=== PATIENT | female | born 1995 | race American Indian/Alaskan Native ===

== ENCOUNTER 2020-05-23 12:35 | Outpatient (CLI) | payer MEDICAID ==
[2020-05-23 13:45] VITALS: BP 133/61
[2020-05-23] MEDS ORDERED: HYDROcodone/ACETAMINOPHEN 10-325MG TAB PO PRN (14:03)
--- NOTE | 2020-05-23 17:14 | Ultrasound Report ---
US OB limited INDICATION / CLINICAL INFORMATION: Rule out placenta abruption. COMPARISON: None FINDINGS: Single, viable intrauterine . Current breech presentation. heart rate 151. Placenta is posterior and fundal, with no sonographic evidence of abruption IMPRESSION: 1. Viable intrauterine . 2. No evidence of placental abruption. Signer Name: Holger Kitchen MD Signed: 05/23/2020 5:09 PM Workstation Name: [id number]
== END 2020-05-23 17:30 | disposition home or self-care (01) ==
LOC: TRG 12:35 → APU 12:36 → TRG 17:30
PROVIDERS: ATTEND Obstetrics & Gynecology
DX: O46.92 Antepartum hemorrhage, unspecified, second trimester (principal); O32.1XX0 Maternal care for breech presentation, not applicable or unspecified; Z3A.25 25 weeks gestation of pregnancy
CPT/HCPCS: 59025; 76815

== ENCOUNTER 2020-07-25 17:50 | Outpatient (CLI) | payer MEDICAID ==
[2020-07-25 19:45] VITALS: BP 133/63
[2020-07-25] MEDS ORDERED: LACTATED RINGERS 1,000 ML IV ONE (20:36)
[2020-07-25 21:09] LABS: Bilirubin,Urine NEG (Negative); Blood,Urine SM (Negative); Color,Urine Yellow (Yellow); Mucus,Urine FEW /HPF; Protein,Urine <15 mg/dL mg/dL (Negative); Urobilinogen,Urine < 2.0 mg/dL (<2.0)
[2020-07-25] MEDS: TERBUTALINE 1 MG/1 ML INJ SUB-Q PRN ×2 (21:15→21:59)
== END 2020-07-25 23:20 | disposition home or self-care (01) ==
LOC: TRG 17:50 → APU 17:51 → TRG 23:20
PROVIDERS: ATTEND Obstetrics & Gynecology
DX: O26.893 Other specified pregnancy related conditions, third trimester (principal); R10.2 Pelvic and perineal pain; O16.3 Unspecified maternal hypertension, third trimester; Z3A.34 34 weeks gestation of pregnancy
CPT/HCPCS: 59025; 81001; 96360; 96361; 96372; J3105; J7120

== ENCOUNTER 2020-08-16 18:16 | Outpatient (CLI) | payer MEDICAID ==
[2020-08-16 18:41] VITALS: BP 137/74
[2020-08-16] MEDS ORDERED: LACTATED RINGERS 500 ML IV ONE (19:13)
== END 2020-08-16 19:20 | disposition home or self-care (01) ==
LOC: TRG 18:16 → APU 18:16 → TRG 19:20
PROVIDERS: ATTEND Obstetrics & Gynecology
DX: Z34.83 Encounter for supervision of other normal pregnancy, third trimester (principal); Z3A.37 37 weeks gestation of pregnancy
CPT/HCPCS: 59025